=== PATIENT | female | born 1955 | race Caucasian/White ===

== ENCOUNTER 2019-02-01 07:12 | Observation (INO) | payer OTHER ==
[2019-02-01] MEDS: CEFAZOLIN 1 GM/50 ML (PMX) 50 ML IVPB (07:00)
[~2019-02-01 07:12] MED LIST: DESFLURANE 15 MIN
[2019-02-01] MEDS ORDERED: CLINDAMYCIN 900 MG/D5W (PMX) 50 ML IVPB (08:40)
[2019-02-01] MEDS ORDERED: LIDOCAINE 2% (SDV) 5 ML INJ (08:40)
[2019-02-01] MEDS ORDERED: MIDAZOLAM 1 MG/ML 2 ML INJ (08:40)
[2019-02-01] MEDS ORDERED: FENTAnyl 50 MCG/ML VIAL ×2 (08:40→12:06)
[2019-02-01] MEDS ORDERED: PROPOFOL 20 ML (08:40)
[2019-02-01] MEDS ORDERED: hydrALAzine 20 MG INJ IV (09:00)
[2019-02-01] MEDS ORDERED: ONDANSETRON 4 MG INJ IV ×2 (09:00→13:00)
[2019-02-01] MEDS ORDERED: HYDROmorphONE 1 MG/5 ML IV SYRINGE IV ×3 (09:00)
[2019-02-01] MEDS ORDERED: MEPERIDINE 25 MG INJ IV (09:00)
[2019-02-01] MEDS ORDERED: OXYCODONE/ACETAMINOPHEN (5/325) TAB PO ×2 (09:00)
[2019-02-01] MEDS ORDERED: LABETALOL HCL 20MG INJ IV (09:00)
[2019-02-01 09:12] LABS: ADD MAN DIFF? NO
[2019-02-01 09:15] LABS: WHITE BLOOD COUNT 7.9 10^3/ul (4.8-10.8)
[2019-02-01 09:15] LABS: BASOPHILS % 0.4 % (0.0-2.0); EOSINOPHILS # 0.2 10^3/ul (0.0-0.5); EOSINOPHILS % 2.3 % (0.0-7.0); HEMATOCRIT 39.5 % (37.0-47.0); HEMOGLOBIN 12.9 g/dl (12.0-16.0); LYMPHOCYTES # 2.2 10^3/ul (0.8-2.9); LYMPHOCYTES % 27.6 % (15.0-51.0); MEAN CORPUSCULAR HEMOGLOBIN 28.7 pg (29.0-33.0); MEAN CORPUSCULAR HGB CONC 32.7 g/dl (32.0-37.0); MEAN CORPUSCULAR VOLUME 87.8 fl (82.0-101.0); MEAN PLATELET VOLUME 9.7 fl (7.4-10.4); MONOCYTE # 0.7 10^3/ul (0.3-0.9); MONOCYTES % 8.4 % (0.0-11.0); NEUTROPHIL # 4.8 10^3/ul (1.6-7.5); NEUTROPHILS % 60.9 % (39.0-77.0); PLATELET COUNT 244 10^3/UL (140-415); RED CELL DISTRIBUTION WIDTH 12.6 % (11.5-14.5)
[2019-02-01] MEDS: SOD CHLORIDE 0.9% 1,000 ML IV (09:15)
[2019-02-01 09:38] LABS: INR 0.89; PARTIAL THROMBOPLASTIN TIME 26.2 Sec (23.0-35.0); PROTIME 12.1 Sec (11.9-14.9); PT RATIO 0.9
[2019-02-01 09:44] LABS: ALANINE AMINOTRANSFERASE 22 IU/L (13-69); ALBUMIN 4.3 g/dl (3.3-4.9); ALBUMIN/GLOBULIN RATIO 1.16; ALKALINE PHOSPHATASE 152 IU/L (42-121); ANION GAP 9 (5-13); ASPARTATE AMINO TRANSFERASE 34 IU/L (15-46); BILIRUBIN,INDIRECT 0.7 mg/dl (0-1.1); BILIRUBIN,TOTAL 0.7 mg/dl (0.2-1.3); BLOOD UREA NITROGEN 13 mg/dl (7-20); CALCIUM 9.4 mg/dl (8.4-10.2); CARBON DIOXIDE 28 mmol/L (21-31); CHLORIDE 107 mmol/L (97-110); CREATININE 0.48 mg/dl (0.44-1.00); Estimated GFR > 60 mL/min (>60); GLUCOSE 109 mg/dl (70-220); POTASSIUM 3.5 mmol/L (3.5-5.1); SODIUM 144 mmol/L (135-144)
[2019-02-01] MEDS ORDERED: DEXAMETHASONE 4 MG/ML 5 ML INJ (11:18)
[2019-02-01] MEDS ORDERED: FAMOTIDINE 20 MG INJ (11:18)
[2019-02-01] MEDS ORDERED: METOCLOPRAMIDE 10 MG INJ (11:18)
[2019-02-01] MEDS ORDERED: ONDANSETRON 4 MG INJ (11:18)
[2019-02-01] MEDS: ISOSULFAN BLUE 1% 5 ML INJ SC (11:38)
[2019-02-01] MEDS ORDERED: SUCCINYLCHOLINE CHLORIDE 100 MG/5 ML SYG IV (12:13)
[2019-02-01] MEDS ORDERED: DIPHENHYDRAMINE 25 MG CAP PO (13:00)
[2019-02-01] MEDS: hydrALAzine 20 MG INJ IV (13:00)
[2019-02-01] MEDS ORDERED: HYDROmorphONE 0.5 MG/0.5 ML SYG SC (13:00)
[2019-02-01] MEDS: D5W-0.45 NACL + KCL 20 MEQ 1,000 ML IV (15:01)
[2019-02-01] MEDS: HYDROCODONE/APAP (5/325) TAB PO (15:44)
[2019-02-02] MEDS: D5W-0.45 NACL + KCL 20 MEQ 1,000 ML IV ×2 (04:15→08:43)
[2019-02-02] MEDS: ACETAMINOPHEN 325 MG TAB PO ×2 (04:27→13:35)
[2019-02-02] MEDS: AMLODIPINE 5 MG TAB PO (21:43)
[2019-02-03] MEDS: AMLODIPINE 5 MG TAB PO (08:43)
== END 2019-02-03 13:24 | disposition home or self-care (01) ==
LOC: SDS 07:12 → REC 12:51 → MS1 14:20
DX: C50.911 Malignant neoplasm of unspecified site of right female breast (principal); Z80.41 Family history of malignant neoplasm of ovary; Z88.0 Allergy status to penicillin
CPT/HCPCS: 19281; 80053; 85025; 85610; 85730; 88307; 88342; 93005